=== PATIENT | male | born 2000 | race Two or more races ===

== ENCOUNTER 2021-10-17 06:19 | Emergency (ER) | payer SELFPAY ==
[~2021-10-17] VITALS: Ht 172.7 cm; Wt 63.5 kg
[2021-10-17 06:33] VITALS: BP 135/87
[2021-10-17] MEDS ORDERED: ONDANSETRON ODT 4 MG TAB PO ONE (07:30)
[2021-10-17 07:45] LABS: Urine Amorphous Crystal MANY /hpf (None Seen); Urine Bacteria NONE SEEN /hpf (None Seen); Urine Blood Negative /uL (Negative); Urine Budding Yeast MANY /hpf (None Seen); Urine Mucus FEW (None Seen); Urine Specific Gravity 1.019 (1.001-1.035); Urine WBC 13 /hpf (0 - 3); Urine WBC Clumps PRESENT /hpf (None Seen)
[2021-10-17] MEDS ORDERED: LIDOCAINE 1% HCL (LOCAL ANESTH.) INJ 20ML MDV ONE (07:56)
[2021-10-17] MEDS ORDERED: cefTRIAXone SOD 1,000 MG VL IM ONE (08:00)
[2021-10-17] MEDS ORDERED: LIDOCAINE 1% HCL (LOCAL ANESTH.) INJ 20ML MDV IJ ONE (08:00)
[2021-10-17] MEDS ORDERED: ONDA-144 PO (08:24)
[2021-10-17] MEDS ORDERED: IBUP600T27 PO (08:24)
== END 2021-10-17 08:30 | disposition home or self-care (01) ==
LOC: ER 06:19
DX: R11.2 Nausea with vomiting, unspecified (principal); J06.9 Acute upper respiratory infection, unspecified; F12.10 Cannabis abuse, uncomplicated
CPT/HCPCS: 71046; 81001; 96372; 99284; J0696; J2001; Q0162